=== PATIENT | male | born 1960 | race Hispanic/Latino ===

== ENCOUNTER → 2025-04-09 | Outpatient (CLI) | payer OTHER ==
[2025-04-09 10:05] LABS: IMMATURE GRANULOCYTE ABSOLUTE 0.02 K/uL (0-1); NUCLEATED RED BLOOD CELLS 0.0 % (0.0-0.19); PLATELET COUNT (AUTO) 196 K/uL (130-400); RED BLOOD CELL COUNT(AUTO) 4.76 MIL/uL (4.50-6.20); RED CELL DISTRIBUTION WIDTH 12.6 % (11.0-15.5); WHITE BLOOD COUNT (AUTO) 5.6 K/uL (4.8-10.8)
[2025-04-09 10:26] LABS: ASPARTATE AMINOTRANSFERASE 13.0 U/L (10-37); CREATININE 0.8 mg/dL (0.5-1.3); GLOMERULAR FILTR. RATE CALC 98.0 mL/min (>90); GLUCOSE,RANDOM 145.0 mg/dL (70-105); SODIUM SERUM 138.0 mmol/L (136-145); TOTAL PROTEIN, SERUM 6.8 g/dL (6.0-8.3); UREA NITROGEN, BLOOD 16.0 mg/dL (7-18)
== END | disposition home or self-care (01) ==
LOC: LAB 08:58
PROVIDERS: ATTEND Internal Medicine Gastroenterology
DX: D49.0 Neoplasm of unspecified behavior of digestive system (principal); K56.609 Unspecified intestinal obstruction, unspecified as to partial versus complete obstruction; C18.2 Malignant neoplasm of ascending colon
CPT/HCPCS: 36415; 80053; 82378; 85025

== ENCOUNTER → 2025-04-12 | Outpatient (CLI) | payer OTHER ==
[~2025-04-12] MED LIST: IOHEXOL-350 75 ML VIAL IV ONE
--- NOTE | 2025-04-13 01:59 | HMCIMG ---
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 TECHNIQUE: Axial computed tomography images of the chest, abdomen and pelvis with intravenous contrast. 75 mL of intravenous contrast has been administered. Total exam DLP is 915 mGyx cm. Dose reduction technique was used including one or more of the following: automated exposure control, adjustment of mA and kV according to patient size, and/or iterative reconstruction. CONTRAST: With intravenous contrast (75 mL administered). COMPARISON: None provided. FINDINGS: CHEST: LUNGS: Bibasilar dependent atelectasis. No pulmonary mass. No focal airspace consolidation. PLEURAL SPACES: No pleural effusion. No pneumothorax. HEART AND MEDIASTINUM: Coronary arterial calcifications present. No cardiomegaly. No significant pericardial effusion. LYMPH NODES: No lymphadenopathy. ABDOMEN AND PELVIS: LIVER: The liver demonstrates diffuse reduced density, consistent with fatty infiltration. The liver is enlarged measuring 19.8 cm. No focal lesions. There is no biliary ductal dilatation. GALLBLADDER AND BILE DUCTS: Unremarkable. No calcified stone. No ductal dilation. PANCREAS: Unremarkable. SPLEEN: Mild splenomegaly measuring 14.2 cm. ADRENAL GLANDS: Unremarkable. KIDNEYS, URETERS, AND BLADDER: In the delayed phase images, there is symmetric contrast excretion through the both kidneys with no dilatation of the pelvicalyceal system and the ureter on either side. No hydronephrosis or nephrolithiasis. No ureteral or bladder calculi. There is mild prostatomegaly with periurethral calcifications. STOMACH AND BOWEL: Thickening versus underdistention of the wall of the sigmoid colon, without pericolonic nodularity. The rectally administered contrast is uniformly outlining the colon. There is no contrast stasis of the small bowel. No abnormal small bowel wall thickening /pneumatosis. No obstruction. No CT evidence of colitis or acute diverticulitis. APPENDIX: The appendix is unremarkable, series 2, image 83/136. No CT evidence for appendicitis. PERITONEUM: No free fluid. No free air. LYMPH NODES: No lymphadenopathy. REPRODUCTIVE: Mild prostatomegaly with periurethral calcifications. Unremarkable as visualized. VASCULATURE: Atheromatous calcification of the thoracic aortic arch. The abdominal aorta demonstrates atheromatous calcification without aneurysm or dissection. No aortic aneurysm. BONES AND SOFT TISSUES: Chronic appearing compression deformity of L1 vertebra with 30% vertebral height reduction. Similar chronic compression deformity of T12 is present with 20% vertebral height reduction. Acquired fusion of T12, L1 vertebrae with irregularity of the intervening endplate, possibly representing old spondylodiscitis without pre/paravertebral soft tissue component or epidural soft tissue component in this region. Focal increased exaggerated kyphotic deformity of the spine is present in this region. The soft tissues are unremarkable. IMPRESSION: 1. Thickening versus underdistention of the sigmoid colon, without pericolonic nodularity. Recommend clinical correlation and follow up with sigmoidoscopy to exclude pathological thickening. 2. Mild hepatosplenomegaly with fatty liver. 3. 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 Correlate with history of prior back pain and MRI, if any. 4. Several stable chronic and incidental findings are noted, as detailed in the body of the report. /[place]
== END | disposition home or self-care (01) ==
LOC: RAH 10:01
PROVIDERS: ATTEND Internal Medicine Gastroenterology
DX: K76.0 Fatty (change of) liver, not elsewhere classified (principal); M48.54XA Collapsed vertebra, not elsewhere classified, thoracic region, initial encounter for fracture; M48.56XA Collapsed vertebra, not elsewhere classified, lumbar region, initial encounter for fracture; R16.2 Hepatomegaly with splenomegaly, not elsewhere classified; D49.0 Neoplasm of unspecified behavior of digestive system; N40.0 Benign prostatic hyperplasia without lower urinary tract symptoms; I70.0 Atherosclerosis of aorta; J98.11 Atelectasis; I25.10 Atherosclerotic heart disease of native coronary artery without angina pectoris
CPT/HCPCS: 71260; 74177; Q9967